=== PATIENT | female | born 1990 | race Caucasian/White ===

== ENCOUNTER 2017-11-12 03:20 | Inpatient (IN) | payer OTHER ==
[2017-11-12] MEDS ORDERED: LACTATED RINGER'S 1,000 ML IV (04:35)
[2017-11-12] MEDS ORDERED: METHYLERGONOVINE 0.2 MG INJ IM ×2 (05:00→13:00)
[2017-11-12] MEDS ORDERED: OXYCODONE/ACETAMINOPHEN (5/325) TAB PO (05:00)
[2017-11-12] MEDS ORDERED: MISOPROSTOL 200 MCG TAB PR ×2 (05:00→13:00)
[2017-11-12] MEDS ORDERED: LIDOCAINE 1% (MPF) 30 ML INJ INJ (05:00)
[2017-11-12] MEDS ORDERED: IBUPROFEN 600 MG TAB PO ×2 (05:00→18:00)
[2017-11-12] MEDS ORDERED: OXYTOCIN 30 UNITS/LR 500 ML IV ×4 (05:00→13:00)
[2017-11-12] MEDS ORDERED: CARBOPROST 250 MCG INJ IM ×2 (05:00→13:00)
[2017-11-12] MEDS ORDERED: BUTORPHANOL 2 MG INJ IV (05:00)
[2017-11-12] MEDS: LACTATED RINGER'S 1,000 ML IV ×2 (05:55→07:20)
[2017-11-12 06:07] LABS: ADD MAN DIFF? NO
[2017-11-12 06:11] LABS: BASOPHILS % 0.2 % (0.0-2.0); EOSINOPHILS # 0.1 10^3/ul (0.0-0.5); EOSINOPHILS % 0.7 % (0.0-7.0); HEMATOCRIT 37.5 % (37.0-47.0); LYMPHOCYTES % 14.3 % (15.0-51.0); MEAN CORPUSCULAR HEMOGLOBIN 32.8 pg (29.0-33.0); MEAN CORPUSCULAR HGB CONC 34.7 g/dl (32.0-37.0); MEAN CORPUSCULAR VOLUME 94.7 fl (82.0-101.0); MEAN PLATELET VOLUME 11.1 fl (7.4-10.4); MONOCYTE # 0.9 10^3/ul (0.3-0.9); MONOCYTES % 6.4 % (0.0-11.0); NEUTROPHILS % 77.5 % (39.0-77.0); PLATELET COUNT 189 10^3/UL (140-415); RED BLOOD COUNT 3.96 10^6/ul (4.20-5.40); RED CELL DISTRIBUTION WIDTH 12.1 % (11.5-14.5)
[2017-11-12 06:11] LABS: WHITE BLOOD COUNT 14.2 10^3/ul (4.8-10.8)
[2017-11-12] MEDS: CLINDAMYCIN 900 MG/D5W (PMX) 50 ML IV (06:15)
[2017-11-12 06:35] LABS: INR 0.78; PARTIAL THROMBOPLASTIN TIME 23.8 Sec (25.0-35.0); PROTIME 10.9 Sec (11.9-14.9); PT RATIO 0.9
[2017-11-12] MEDS ORDERED: FENTAnyl 2MCG/ML-ROPIV 0.2% 100 ML (06:52)
[2017-11-12] MEDS ORDERED: LIDOCAINE 1.5%/EPI MPF (SDV) 30 ML VIAL (07:00)
[2017-11-12] MEDS ORDERED: LIDOCAINE 2% (SDV) 5 ML INJ (08:26)
[2017-11-12] MEDS: FENTAnyl 2MCG/ML-ROPIV 0.2% 100 ML BAG EPI (11:23)
[2017-11-12] MEDS ORDERED: NALOXONE (0.4 MG/ML) INJ IV (11:30)
[2017-11-12] MEDS ORDERED: ONDANSETRON 4 MG INJ IV (11:30)
[2017-11-12] MEDS ORDERED: DIPHENHYDRAMINE 50 MG INJ IV (11:30)
[2017-11-12] MEDS: OXYTOCIN 30 UNITS/LR 500 ML IV (12:30)
[2017-11-12 14:59] LABS: RAPID PLASMA REAGIN NONREACTIVE (NR)
[2017-11-12] MEDS: IBUPROFEN 600 MG TAB PO ×2 (15:12→21:01)
[2017-11-12] MEDS: LANOLIN 7 GM TUBE TOP (18:02)
[2017-11-12] MEDS: OXYCODONE/ASPIRIN (4.88/325) TAB PO (18:59)
[2017-11-13] MEDS: BENZOCAINE 20% 56 ML SPRAY TOP (01:49)
[2017-11-13] MEDS: IBUPROFEN 600 MG TAB PO ×4 (03:12→21:27)
[2017-11-13 11:10] LABS: ADD MAN DIFF? NO
[2017-11-13 11:15] LABS: WHITE BLOOD COUNT 19.6 10^3/ul (4.8-10.8)
[2017-11-13 11:15] LABS: BASOPHIL # 0.1 10^3/ul (0.0-0.1); BASOPHILS % 0.3 % (0.0-2.0); EOSINOPHILS # 0.1 10^3/ul (0.0-0.5); EOSINOPHILS % 0.3 % (0.0-7.0); HEMATOCRIT 36.4 % (37.0-47.0); HEMOGLOBIN 12.6 g/dl (12.0-16.0); LYMPHOCYTES % 10.4 % (15.0-51.0); MEAN CORPUSCULAR HEMOGLOBIN 33.1 pg (29.0-33.0); MEAN CORPUSCULAR HGB CONC 34.6 g/dl (32.0-37.0); MEAN CORPUSCULAR VOLUME 95.5 fl (82.0-101.0); MEAN PLATELET VOLUME 11.5 fl (7.4-10.4); MONOCYTE # 1.1 10^3/ul (0.3-0.9); MONOCYTES % 5.8 % (0.0-11.0); NEUTROPHIL # 16.1 10^3/ul (1.6-7.5); NEUTROPHILS % 82.2 % (39.0-77.0); PLATELET COUNT 171 10^3/UL (140-415); RED BLOOD COUNT 3.81 10^6/ul (4.20-5.40); RED CELL DISTRIBUTION WIDTH 12.8 % (11.5-14.5)
[2017-11-14] MEDS: IBUPROFEN 600 MG TAB PO ×2 (04:01→09:48)
[2017-11-14] MEDS: DIPHTH/TET/ACEL PERTUSS (ADULT) 0.5 ML VIAL IM* (11:17)
== END 2017-11-14 14:55 | disposition home or self-care (01) | DRG 775 ==
LOC: OBT 03:20 → L-D 03:21 → OBT 04:21 → L-D 04:22 → PP1 17:42
PROVIDERS: Obstetrics & Gynecology
PROC: 10E0XZZ Delivery of Products of Conception, External Approach (ICD-10-PCS; principal; 2017-11-12)
DX: O80 Encounter for full-term uncomplicated delivery (principal); Z37.0 Single live birth; Z3A.38 38 weeks gestation of pregnancy
CPT/HCPCS: 62319; 85025; 85610; 85730; 86592; 86850; 86900; 86901; 90715